=== PATIENT | female | born 1970 | race Hispanic/Latino ===

== ENCOUNTER 2016-12-18 17:13 | Emergency (ER) | payer OTHER ==
[~2016-12-18] VITALS: Ht 157.5 cm; Wt 79.4 kg
[~2016-12-18 17:13] MED LIST: SERTRALINE HCL100 MG PO
--- NOTE | 2016-12-18 18:19 | ED HAND/WRIST INJURY COMPLAINT ---
History of Present Illness General Chief Complaint: Hand or Wrist Injury Stated Complaint: WRIST INJURY Source: patient, family Exam Limitations: no limitations Vital Signs & Intake/Output Vital Signs & Intake/Output ED Intake and Output 12/19 0000 12/18 1200 Intake Total Output Total Balance Patient 175 lb Weight Allergies Coded Allergies: No Known Drug Allergies (12/18/16) Reconcile Medications Oxycodone HCl/Acetaminophen (Percocet 5-325 MG Tablet) 5 MG-325 MG TABLET 1 TAB PO Q4-6 PRN PAIN Sertraline HCl 100 MG TABLET 1 TAB PO DAILY MENTAL HEALTH (Reported) Triage Note: TRIAGE: PT TO ER WITH C/C L WRIST PAIN 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 STATES SHE FELL OFF OF HER BED AND SHE FELL OFF OF IT, LOST HER BALANCE. HAS SWELLING AND DEFORMITY TO L WRIST. HAS BEEN APPLYING ICE. SPLINT APPLIED AT TRIAGE. MEDICATED WITH TYLENOL. Triage Nurses Notes Reviewed? yes HPI: Patient is a 46 year old female presents complaining of severe left wrist pain s /p fall. Patient was standing on her bed when she fell onto an outstretched hand. Injury occurred just prior to arrival. Pain had mild right knee pain prior to arrival which has since resolved. Pain to the left wrist is severe, worsens with palpation. Patient is right hand dominant. Denies head injury, loss of consciousness, neck pain, numbness, difficulty moving the fingers of the left hand. (ERNESTO TEJEDA) Past History Travel History Traveled to [place] past 21 day No Medical History Any Pertinent Medical History? 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 No (ERNESTO TEJEDA) Review of Systems Review of Systems Constitutional: Reports: no symptoms. EENTM: Denies: blurred vision. Respiratory: Denies: short of breath. Cardiovascular: Denies: chest pain, syncope. GI: Denies: abdominal pain. (ERNESTO TEJEDA) Physical Exam Physical Exam General Appearance: well developed/nourished, alert, awake Head: atraumatic, normal appearance Eyes: Bilateral: normal appearance. Ears, Nose, Throat: hearing grossly normal Neck: normal inspection, supple, full range of motion Cardiovascular/Respiratory: no respiratory distress Back: normal inspection, normal range of motion Elbow Left: normal range of motion, normal inspection, NONTENDER Wrist Left: tenderness, visible deformity left wrist. Radial and ulnar pulses 2+ Hand Left: normal inspection, normal range of motion, full range of motion of all fingers. capillary refill normal, sensation normal to light touch Hand Right: normal inspection, normal range of motion Neurologic/Tendon: normal sensation, normal motor functions, normal tendon functions Skin: intact, normal color, warm/dry (ERNESTO TEJEDA) Progress Differential Diagnosis: contusion, dislocation, fracture, sprain Plan of Care: Orders Procedure Date/time Status Durable Medical Equipment 12/18 1923 Active 1819: Discussed with Dr. Holder: hematoma block, sugar tong splint, follow up in office this week. Splinting and reduction performed using a hematoma block. Well-tolerated by patient. X-rays reviewed with patient. Patient follow-up with orthopedics closely. (ERNESTO TEJEDA) Diagnostic Imaging: Viewed by Me: Radiology Read. Discussed w/RAD: Radiology Read. Radiology Impression: PATIENT: BELL OROZCO PRESENT AGE: 46 PATIENT ACCOUNT NO: [id number] : 68 LOCATION: [facility] ORDERING PHYSICIAN: ERNESTO BRAVO SERVICE DATE: 12/18/16 EXAM TYPE: RAD - XRY-WRIST COMPLETE-LEFT EXAMINATION: XR WRIST, LEFT CLINICAL INFORMATION: Pain and deformity status-post fall. COMPARISON: None TECHNIQUE: AP, lateral, and oblique views of the left wrist, together with a dedicated navicular view. FINDINGS: There is a comminuted fracture of the distal left radius, with intra- articular extension. There is distraction of fracture fragments and impaction. No other fracture or dislocation is seen. In particular, the navicular bone appears intact. There is generalized soft tissue swelling of the left wrist. IMPRESSION: A comminuted fracture is seen of the distal left radius, with intra- articular extension. DICTATED BY: YOVANY ZHONG MD DATE/TIME DICTATED:12/18/161830 DYE BECK REEL OPERATOR:POONAM DATE/TIME TRANSCRIBED:12/18/161830 CONFIDENTIAL, DO NOT COPY WITHOUT APPROPRIATE AUTHORIZATION. <Electronically signed in Other Vendor System> SIGNED BY: YOVANY ZHONG MD 12/18/161839, PATIENT: BELL OROZCO PRESENT AGE: 46 PATIENT ACCOUNT NO: [id number] : 66 LOCATION: [facility] ORDERING PHYSICIAN: ERNESTO BRAVO SERVICE DATE: 12/18/16 EXAM TYPE: RAD - XRY-WRIST 2 VIEWS LEFT EXAMINATION: XR WRIST, LEFT CLINICAL INFORMATION: Status post reduction of left wrist fracture. COMPARISON: Prereduction radiograph done earlier today. TECHNIQUE: AP and lateral view of the left wrist. FINDINGS: Previously documented comminuted fracture with intra-articular extension is noted at the distal metaphyseal of the left radius with intra-articular extension. 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 The alignment appears minimally improved since the prior prereduction radiographs. Evaluation is slightly limited due to presence of the cast. IMPRESSION: Status post reduction radiograph shows minimal interval improvement of alignment and no new abnormalities. DICTATED BY: JAZZMINE BOWEN MD DATE/TIME DICTATED:12/18/161928 DYE BECK REEL OPERATOR:POONAM DATE/TIME TRANSCRIBED:12/18/161928 CONFIDENTIAL, DO NOT COPY WITHOUT APPROPRIATE AUTHORIZATION. <Electronically signed in Other Vendor System> SIGNED BY: JAZZMINE BOWEN MD 12/18/162016 (KENZIE BRAVO,ERNESTO) Departure Departure Time of Disposition: 1924 Disposition: HOME OR SELF CARE Condition: Stable Clinical Impression Primary Impression: Distal radius fracture, left Qualifiers: Encounter type: initial encounter Fracture type: closed Fracture morphology: other intra-articular Qualified Code: S52.572A - Other intraarticular fracture of lower end of left radius, initial encounter for closed fracture Referrals: BONNIE MCLEAN,NORMA Guzman (PCP/Family) TERRI HOLDER MD Additional Instructions: Rest, elevate, wear splint until seen by Dr. Holder. Call Dr. Holder(orthopedist) tomorrow at 9AM for appointment to be seen this week for further evaluation. Return to the ER if numbness, pain uncontrollable, fingers changing color or worsening of symptoms. Departure Forms: Customer Survey General Discharge Information Prescriptions: Current Visit Scripts Oxycodone HCl/Acetaminophen (Percocet 5-325 MG Tablet) 1 TAB PO Q4-6 PRN PAIN #15 TAB (ERNESTO TEJEDA) PA/LANDSCAPE PAINTER Co-Sign Statement Statement: ED Attending supervision documentation- [] I saw and evaluated the patient. I have also reviewed all the pertinent lab results and diagnostic results. I agree with the findings and the plan of care as documented in the PA's/LANDSCAPE PAINTER's documentation. [X] I have reviewed the ED Record and agree with the PA's/LANDSCAPE PAINTER's documentation. [] Additions or exceptions (if any) to the PAs/LANDSCAPE PAINTER's note and plan are summarized below: [] (PILY MCLEAN,JOSÉ ANTONIO Holguin) Procedures Splinting Location: left wrist Hand-Made Type: fiberglass Splint: sugar-tong Splint Applied By: splint applied by me Pre-Proc Neuro Vasc Exam: normal Post-Proc Neuro Vasc Exam: normal Joint Reduction Joint Reduction Site: left wrist Progress: chlorhexadine prep to left dorsal wrist. 10 ml of 1% lidocaine injected to the area. Placed in sugar tong splint with closed reduction (ERNESTO TEJEDA)
--- NOTE | 2016-12-18 18:40 | RADIOLOGY REPORT ---
EXAMINATION: XR WRIST, LEFT CLINICAL INFORMATION: Pain and deformity status-post fall. COMPARISON: None TECHNIQUE: AP, lateral, and oblique views of the left wrist, together with a dedicated navicular view. FINDINGS: There is a comminuted fracture of the distal left radius, with intra-articular extension. There is distraction of fracture fragments and impaction. No other fracture or dislocation is seen. In particular, the navicular bone appears intact. There is generalized soft tissue swelling of the left wrist. IMPRESSION: A comminuted fracture is seen of the distal left radius, with intra-articular extension.
[2016-12-18 19:09] VITALS: BP 120/79
[2016-12-18] MEDS ORDERED: PERCOCET 5-3251 EACH PO (19:27)
--- NOTE | 2016-12-18 20:17 | RADIOLOGY REPORT ---
EXAMINATION: XR WRIST, LEFT CLINICAL INFORMATION: Status post reduction of left wrist fracture. COMPARISON: Prereduction radiograph done earlier today. TECHNIQUE: AP and lateral view of the left wrist. FINDINGS: Previously documented comminuted fracture with intra-articular extension is noted at the distal metaphyseal of the left radius with intra-articular extension. 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 The alignment appears minimally improved since the prior prereduction radiographs. Evaluation is slightly limited due to presence of the cast. IMPRESSION: Status post reduction radiograph shows minimal interval improvement of alignment and no new abnormalities.
== END 2016-12-18 19:38 ==
LOC: ERH 17:13
DX: S52.502A Unspecified fracture of the lower end of left radius, initial encounter for closed fracture (principal); W06.XXXA Fall from bed, initial encounter
CPT/HCPCS: 73100-LT; 73110-LT; 96372